=== PATIENT | male | born 1995 | race Caucasian/White ===

== ENCOUNTER 2018-03-23 23:57 | Emergency (ER) | payer OTHER ==
[~2018-03-23] VITALS: Ht 182.9 cm; Wt 120.0 kg
[2018-03-24 00:33] VITALS: BP 125/68
== END 2018-03-24 01:18 | disposition home or self-care (01) ==
LOC: ED 03-24 01:12
DX: J45.30 Mild persistent asthma, uncomplicated (principal)
CPT/HCPCS: 71046; 99284